=== PATIENT | female | born 2000 | race Two or more races ===

== ENCOUNTER 2022-11-06 19:39 | Emergency (ER) | payer MEDICAID, OTHER ==
--- NOTE | 2022-11-06 21:00 | NUR ---
Patient was just called to be triaged at this time due to a code blue in the ER, but patient was not present in the waiting room or outside of ER.
--- NOTE | 2022-11-06 21:45 | NUR ---
Patient was called to be tiaged at this time but was not present in the waiting room.
--- NOTE | 2022-11-06 22:20 | NUR ---
Patient was called to be triaged but was not present in the waiting room. PATIENT WAS NOT TRIAGED OR SEEN BY [facility].
== END 2022-11-06 22:30 | disposition left against medical advice (07) ==
LOC: ER 19:39
DX: Z53.21 Procedure and treatment not carried out due to patient leaving prior to being seen by health care provider (principal)